=== PATIENT | male | born 1975 | race Caucasian/White ===

== ENCOUNTER 2016-09-26 15:55 | Emergency (ER) | payer BC, OTHER ==
[~2016-09-26 15:55] MED LIST: CLARITIN10 M3 PO; CLARITIN10 MG PO; DAILY VITAMIN1 EAC4 PO; FLONASE16 G1 BOTH NARES; HYDROCODON-ACE1 EAC7 PO; KEFLEX500 MG PO; PERCOCET 5/31 TABLET PO
== END 2016-09-26 16:45 | disposition left against medical advice (07) ==
LOC: EME 15:55
DX: S69.91XA Unspecified injury of right wrist, hand and finger(s), initial encounter (principal); Z53.21 Procedure and treatment not carried out due to patient leaving prior to being seen by health care provider